=== PATIENT | female | born 1970 | race Hispanic/Latino ===

== ENCOUNTER 2017-11-29 02:39 | Emergency (ER) | payer OTHER, SELFPAY ==
[~2017-11-29] VITALS: Ht 162.6 cm; Wt 77.1 kg
[2017-11-29 03:06] VITALS: BP 130/77
--- NOTE | 2017-11-29 03:33 | NUR ---
DRESSING PRESSURE DRESSING APPLIED TO RIGHT LOWER LEG. PT TOLERATED PROCEDURE WELL. CAP REFILL <3 SEC. TOES WARM.
[2017-11-29 03:52] VITALS: BP 130/77
--- NOTE | 2018-01-18 17:36 | ER.PDOC ---
General Chief Complaint: Extremities Stated Complaint: VARICOSE VEIN ISSUE TRAVEL OUT OF US: No Time seen by MD: 02:59 Source: patient, family Exam Limitations: no limitations History of Present Illness Initial Comments Patient has spontaneous onset of bleeding from varicose vein left mcdaniel. Has hx of same. Had admitt for secondary anemia with last one Timing/Duration: unsure Severity: mild Associated Symptoms: denies symptoms Allergies: Coded Allergies: Penicillins (Unverified Allergy, Unknown, rash, 11/29/17) adhesive tape (Unverified Allergy, Unknown, rash, 11/29/17) Home Meds No Active Prescriptions or Reported Meds Vital Signs Allergies Coded Allergies Type Severity Reaction Last Updated Verified Penicillins Allergy Unknown rash 11/29/17 No adhesive tape Allergy Unknown rash 11/29/17 No Past Medical History Medical History: no pertinent history, other Surgical History: no surgical history, LMP (females 10-50): this week Family History Significant Family History: no pertinent family hx Social History Smoking: non-smoker Alcohol Use: rarely Drug Use: none Reviewed Nursing Reviewed: Vital Signs, Abn. Noted, Nursing Assessment Review of Systems Constitutional: no symptoms reported EENTM: no symptoms reported Respiratory: no symptoms reported Cardiovascular: no symptoms reported Gastrointestinal: no symptoms reported Musculoskeletal: no symptoms reported Skin: other (Patient has hx of large varicose veins. Has not had any proceedures done to correct them) Immunological/Allergic: no symptoms reported All Other Systems: Reviewed and Negative Physical Exam General Appearance: No Apparent Distress Extremities: Other (Patient has diffuse varicose veins both LE. Has punctate area left mcdaniel not actively bleeding now) Departure Time of Disposition: 03:52 Disposition: 01 HOME, SELF-CARE Impression: Primary Impression: Varicose vein of leg Condition: Improved Patient Instructions: Varicose Veins Additional Instructions: IN THE ER: YOU WERE EXAMINED BY THE ER PHYSICIAN. YOU HAD A PRESSURE DRESSING APPLIED TO THE LOWER RIGHT LEG. AT HOME: KEEP WRAP ON FOR 24 HOURS AND FOLLOW UP WITH YOUR VASCULAR SURGEON. Scripts No Active Prescriptions or Reported Meds Comments Had long discussion with patient and with family regarding applying direct pressure on bleeding site, using finger tip. Hold for 15-20 min or until bleeding stops. Elevate leg. apply pressure dressing afterwards Duration or Time Spent with Pa: BRIANA LOZA MD Jan 18, 2018 17:36
== END 2017-11-29 03:55 | disposition home or self-care (01) ==
LOC: ER 02:39
DX: I83.892 Varicose veins of left lower extremity with other complications (principal); Z88.0 Allergy status to penicillin
CPT/HCPCS: 99282